=== PATIENT | female | born 2000 | race Caucasian/White ===

== ENCOUNTER 2021-03-14 22:25 | Emergency (ER) | payer OTHER, SELFPAY ==
[2021-03-14] MEDS ORDERED: Azithromycin 250 MG TAB ONE (22:56)
== END 2021-03-14 22:59 | disposition home or self-care (01) ==
LOC: MADERS 22:25
DX: J02.0 Streptococcal pharyngitis (principal)
CPT/HCPCS: 87081; 87430; 99283

== ENCOUNTER 2021-12-26 12:51 | Emergency (ER) | payer SELFPAY ==
[2021-12-26] MEDS ORDERED: HYDROcodone/Acetaminophen 5/325 mg Tablet ONE (13:25)
[2021-12-26] MEDS ORDERED: Ibuprofen 800 MG TAB ONE (13:26)
[2021-12-26] MEDS ORDERED: Acetaminophen 325 MG TAB ONE (13:26)
[2021-12-26] MEDS ORDERED: Cyclobenzaprine 10 MG TAB ONE (13:26)
== END 2021-12-26 13:42 | disposition home or self-care (01) ==
LOC: MADERS 12:51
DX: M54.42 Lumbago with sciatica, left side (principal)
CPT/HCPCS: 99283

== ENCOUNTER 2022-02-14 19:03 | Emergency (ER) | payer SELFPAY | END 2022-02-14 20:27 | disposition home or self-care (01) | LOC: MADERS 19:03 | DX: S93.401A Sprain of unspecified ligament of right ankle, initial encounter (principal); X50.9XXA Other and unspecified overexertion or strenuous movements or postures, initial encounter ==

== ENCOUNTER 2025-10-30 22:58 | Emergency (ER) | payer OTHER, SELFPAY ==
[2025-10-30 23:28] LABS: Pregnancy Test - Urine (BHCG) Negative (Negative); Pregu Control Background? CLEAR/WHITE (CLR/WHITE); Pregu Control Bar Appear? YES (CONTROL BAR)
[2025-10-30 23:29] LABS: Bacteria/HPF Rare-Few HPF (None Seen); CAUTI Indications for Culture Pelvic or flank pain; Glucose, Urine (Dipstick) Negative (Negative); Leukocyte Negative (Negative); Protein, Urine (Dipstick) 30 mg/dL (Neg-Trace); Specific Gravity, Urine Greater/Equal 1.030 (1.005-1.030); Urine Culture Reflex No No; WBC/HPF 0-3 HPF (0-3)
[2025-10-30 23:33] LABS: #Basophils 0.1 thou/uL (0.0-0.2); #Eosinophils 0.1 thou/uL (0.0-0.7); #Lymphocytes 2.8 thou/uL (1.20-3.40); #Monocytes 0.7 thou/uL (0.11-0.59); #Neutrophils 7.6 thou/uL (1.40-6.50); %Basophils 0.8 % (0.0-1.0); %Eosinophils 0.6 % (0.0-10.0); %Lymphocytes 24.9 % (21.0-51.0); %Monocytes 6.5 % (0.0-10.0); %Neutrophils 67.2 % (42.0-75.0); Hematocrit 36.4 % (36.0-47.0); Hemoglobin 11.8 g/dL (12.0-16.0); Mean Corpuscular Hemoglobin 28.7 pg (27.0-31.0); Mean Corpuscular Volume 88.6 fl (78.0-98.0); Platelet Count 289 10x3/uL (130-400); Red Blood Cell (RBC) Count 4.11 mill/uL (4.20-5.40); White Blood Cell (WBC) Count 11.4 10x3/uL (4.8-10.8)
[2025-10-30 23:50] LABS: ALT (SGPT) 26 U/L (Less than 34); AST (SGOT) 22 U/L (11-34); Albumin 4.2 g/dL (3.1-4.5); Alkaline Phosphatase 71 U/L (40-110); Anion Gap 17 mmol/L (10-20); BUN (Urea Nitrogen) 13 mg/dL (7.0-18.7); Bilirubin, Total 1.2 mg/dL (0.3-1.2); Calc. Creatinine Clearance 0 mL/min (70-130); Calcium 9.0 mg/dL (7.8-10.44); Carbon Dioxide 21 mmol/L (22-29); Chloride 107 mmol/L (98-107); Globulin 3.2 g/dL (2.4-3.5); Glucose 94 mg/dL (70-105); Potassium 3.5 mmol/L (3.5-5.1); Sodium 141 mmol/L (136-145)
== END 2025-10-31 00:13 | disposition home or self-care (01) ==
LOC: MADERS 22:58
DX: K59.00 Constipation, unspecified (principal); E86.0 Dehydration; R11.0 Nausea; Z75.3 Unavailability and inaccessibility of health-care facilities
CPT/HCPCS: 80053; 81001; 81025; 85025; 96365; J2550; J7030